=== PATIENT | female | born 1995 | race African-American/Black ===

== ENCOUNTER 2017-03-15 14:42 | Inpatient (IN) ==
[~2017-03-15 14:42] MED LIST: OXYTOCIN/LR 20 UNIT/1,000 ML BAG IV SCH
[2017-03-15] MEDS ORDERED: MEPERIDINE 50 MG/1 ML VIAL IV PRN (15:09)
[2017-03-15] MEDS: LACTATED RINGERS 1,000 ML IV SCH ×2 (15:09→23:42)
[2017-03-15] MEDS ORDERED: ONDANSETRON 4 MG/2 ML VIAL IV PRN (15:09)
[2017-03-15] MEDS ORDERED: LACTATED RINGERS 500 ML IV PRN (15:09)
[2017-03-15] MEDS ORDERED: DINOPROSTONE VAG GEL 10 MG SYRINGE VAG ONE (15:10)
[2017-03-15 15:26] LABS: Basophils % 0.3 % (0.0-0.8); Eosinophils # 0.1 10*3/uL (0.0-0.87); Eosinophils % 0.8 % (0.00-10.9); Hematocrit 33.2 VOL% (35.7-47.0); Hemoglobin 10.1 GM/DL (12.0-16.0); Immature Granulocytes % 0.4 %; Immature Granulocytes Absolute 0.03 #; Lymphocytes # 2.3 10*3/uL (1.4-4.0); Lymphocytes % 28.9 % (21.3-54.2); Mean Corpuscular HGB Conc 30.4 GM/DL (32-36); Mean Corpuscular Hemoglobin 24 PG (27-34); Mean Platelet Volume 13.1 FL (9.6-12.0); Monocytes # 0.8 10*3/uL (0.11-0.8); Monocytes % 9.5 % (1.7-12.7); NRBC # 0.02 10*3/uL; Neutrophils # 4.8 10*3/uL (1.4-7.4); Neutrophils % 60.1 % (38.7-73.9); Platelet Count 211 T/CUMM (130-400); Red Cell Distribution Width 15.1 % (9.3-17.3)
[2017-03-15 15:54] LABS: Alanine Aminotransferase 17 U/L (13-56); Albumin 2.9 G/DL (3.4-5.0); Alkaline Phosphatase 230 U/L (45-117); Aspartate Amino Transferase 21 U/L (0-37); Bilirubin,Total < 0.39 MG/DL (0.2-1.0); Blood Urea Nitrogen 6 MG/DL (7-18); Calcium 8.1 MG/DL (8.5-10.1); Glucose 81 MG/DL (74-106); Osmolality,Calculated 271.7 MOS/KG (273-304); Potassium 3.8 MMOL/L (3.5-5.1); Sodium 138 MMOL/L (136-145); Total Protein 7.2 G/DL (6.4-8.3)
[2017-03-15 16:20] LABS: INR 0.9; PT Patient Result 9.2 SECS; Partial Thromboplastin Time 28.3 SECS (0-40)
[2017-03-15] MEDS ORDERED: LABETALOL 100 MG TABLET ONE (19:08)
[2017-03-15] MEDS: LABETALOL 100 MG TABLET PO SCH ×2 (19:10→21:11)
[2017-03-15] MEDS ORDERED: hydrOXYzine HCL 25 MG/1 ML VIAL IM PRN (22:21)
[2017-03-15] MEDS ORDERED: diphenhydrAMINE 50 MG/1 ML VIAL IV PRN (22:21)
[2017-03-15] MEDS ORDERED: ePHEDrine 50 MG/ML AMP IV PRN (22:21)
[2017-03-15] MEDS ORDERED: PROMETHAZINE 25 MG/1 ML VIAL IM ONE (22:30)
[2017-03-15] MEDS ORDERED: LACTATED RINGERS 1,000 ML IV ONE (22:30)
[2017-03-15] MEDS ORDERED: CITRIC ACID/SODIUM CITRATE 30 ML UDCUP PO ONE (22:30)
[2017-03-15] MEDS ORDERED: fentaNYL 2 MCG/ROPIV 0.2% EPID 150 ML EPIDURAL SCH (22:30)
[2017-03-15] MEDS ORDERED: FAMOTIDINE 20 MG/2 ML VIAL IV ONE (22:30)
[2017-03-16] MEDS ORDERED: miSOPROStol 200 MCG TABLET ONE (05:02)
[2017-03-16] MEDS ORDERED: oxyCODONE/ACETAMINOPHEN 5-325 MG TABLET PO PRN ×2 (11:25→11:30)
[2017-03-16] MEDS ORDERED: MEASLES/MUMPS/RUBELLA VACCINE 0.5 ML VIAL SUBCUT ONE (11:25)
[2017-03-16] MEDS ORDERED: LANOLIN 50% CREAM 0.3 OZ TUBE TOP PRN (11:25)
[2017-03-16] MEDS ORDERED: DIPH/TET/ACEL PERT BOOSTER VACCINE 0.5 ML VIAL IM ONE (11:25)
[2017-03-16] MEDS ORDERED: RHO(D) IMMUNE GLOBULIN 300 MCG SYRINGE IM ONE (11:25)
[2017-03-16] MEDS ORDERED: WITCH HAZEL PADS 100/JAR TOP PRN (11:30)
[2017-03-16] MEDS ORDERED: ACETAMINOPHEN/CODEINE 300-30 MG TABLET PO PRN (11:30)
[2017-03-16] MEDS ORDERED: IBUPROFEN 800 MG TABLET PO PRN (11:30)
[2017-03-16] MEDS ORDERED: HYDROCORTISONE 2.5% RECTAL CREAM 30 GM TUBE TOP PRN (11:30)
[2017-03-16] MEDS ORDERED: BENZOCAINE 20%/MENTHOL 0.5% SPRAY 56 GM CAN TOP PRN (11:30)
[2017-03-16] MEDS ORDERED: BISACODYL 10 MG SUPP RECTAL PRN (11:30)
[2017-03-16] MEDS ORDERED: ACETAMINOPHEN 325 MG TABLET PO PRN (11:30)
[2017-03-16] MEDS ORDERED: OXYTOCIN/LR 20 UNIT/1,000 ML BAG IV ONE ×2 (11:44→11:45)
[2017-03-16] MEDS: DOCUSATE SODIUM 100 MG CAPSULE PO SCH (21:57)
[2017-03-17 06:34] LABS: Basophils % 0.2 % (0.0-0.8); Eosinophils # 0.2 10*3/uL (0.0-0.87); Eosinophils % 1.3 % (0.00-10.9); Hematocrit 32.1 VOL% (35.7-47.0); Hemoglobin 10.3 GM/DL (12.0-16.0); Immature Granulocytes % 0.7 %; Immature Granulocytes Absolute 0.08 #; Lymphocytes # 3.1 10*3/uL (1.4-4.0); Lymphocytes % 25.6 % (21.3-54.2); Mean Corpuscular HGB Conc 32.1 GM/DL (32-36); Mean Corpuscular Hemoglobin 25 PG (27-34); Mean Corpuscular Volume 76.2 FL (87-102); Mean Platelet Volume 12.9 FL (9.6-12.0); Monocytes # 0.8 10*3/uL (0.11-0.8); Monocytes % 6.8 % (1.7-12.7); Neutrophils # 7.9 10*3/uL (1.4-7.4); Neutrophils % 65.4 % (38.7-73.9); Platelet Count 205 T/CUMM (130-400); Red Blood Count 4.21 MC/CUMM (3.8-5.5); Red Cell Distribution Width 15.1 % (9.3-17.3)
[2017-03-17] MEDS: DOCUSATE SODIUM 100 MG CAPSULE PO SCH ×2 (09:35→22:20)
[2017-03-18] MEDS: DOCUSATE SODIUM 100 MG CAPSULE PO SCH (08:48)
[2017-03-18 11:44] VITALS: BP 123/79
== END 2017-03-18 14:20 | disposition home or self-care (01) | DRG 560 ==
LOC: N.LDOUT 14:42 → N.LD 14:44 → N.OB 03-16 11:25
PROVIDERS: ADMIT Obstetrics & Gynecology; ATTEND Obstetrics & Gynecology

== ENCOUNTER 2018-11-13 04:48 | Inpatient (IN) ==
[2018-11-13] MEDS ORDERED: BUTORPHANOL 2 MG/ML VIAL IV PRN (05:01)
[2018-11-13] MEDS ORDERED: MEPERIDINE 25 MG/1 ML VIAL IV PRN (05:01)
[2018-11-13] MEDS ORDERED: ONDANSETRON 4 MG/2 ML VIAL IV PRN (05:01)
[2018-11-13] MEDS ORDERED: OXYTOCIN/LR 20 UNIT/1,000 ML BAG IV SCH (05:30)
[2018-11-13] MEDS ORDERED: LACTATED RINGERS 1,000 ML IV SCH (05:30)
[2018-11-13 05:36] LABS: Basophils % 0.1 % (0.0-0.8); Eosinophils # 0.1 10*3/uL (0.0-0.87); Hematocrit 30.3 VOL% (35.7-47.0); Hemoglobin 9.3 GM/DL (12.0-16.0); Immature Granulocytes % 0.6 %; Immature Granulocytes Absolute 0.05 #; Lymphocytes # 2.8 10*3/uL (1.4-4.0); Lymphocytes % 32.1 % (21.3-54.2); Mean Corpuscular HGB Conc 30.7 GM/DL (32-36); Mean Corpuscular Volume 75.4 FL (87-102); Mean Platelet Volume 11.7 FL (9.6-12.0); Neutrophils % 58.2 % (38.7-73.9); Platelet Count 197 T/CUMM (130-400); Red Blood Count 4.02 MC/CUMM (3.8-5.5); Red Cell Distribution Width 15.1 % (9.3-17.3); White Blood Count 8.6 T/CUMM (4-12)
[2018-11-13 05:58] LABS: Albumin 2.6 G/DL (3.4-5.0); Bilirubin,Total 0.7 MG/DL (0.2-1.0); Calcium 8.6 MG/DL (8.5-10.1); Osmolality,Calculated 272.5 MOS/KG (273-304); Total Protein 7.1 G/DL (6.4-8.3)
[2018-11-13] MEDS ORDERED: ePHEDrine 50 MG/ML AMP IV PRN (07:28)
[2018-11-13] MEDS ORDERED: diphenhydrAMINE 50 MG/1 ML VIAL IV PRN ×2 (07:28)
[2018-11-13] MEDS ORDERED: NALOXONE 0.4 MG/ML VIAL IV PRN (07:28)
[2018-11-13] MEDS ORDERED: hydrOXYzine HCL 25 MG/1 ML VIAL IM PRN (07:28)
[2018-11-13] MEDS ORDERED: FAMOTIDINE 20 MG/2 ML VIAL IV ONE (07:28)
[2018-11-13] MEDS ORDERED: LACTATED RINGERS 1,000 ML IV ONE (07:28)
[2018-11-13] MEDS ORDERED: CITRIC ACID/SODIUM CITRATE 30 ML UDCUP PO ONE (07:28)
[2018-11-13] MEDS ORDERED: fentaNYL 2 MCG/ROPIV 0.2% EPID 100 ML EPIDURAL SCH (07:30)
[2018-11-13 09:36] LABS: Apearance,Urine CLEAR (Clear); Bilirubin,Urine Negative (Negative); Blood, Urine Negative (Negative); Glucose,Urine (UA) Negative (Negative); Ketones,Urine 20 mg/dL (Negative); Mucus,Urine Moderate /LPF (Occasional); Nitrite,Urine Negative (Negative); Protein,Urine Negative; RBC,Urine 1 /HPF (0-4); Squamous Epithelial Cell,Urine Occasional /HPF (0-10); Urine Color Yellow (Yellow); WBC,Urine 1 /HPF (0-6)
[2018-11-13] MEDS ORDERED: miSOPROStoL 200 MCG TABLET ONE (11:04)
[2018-11-13] MEDS ORDERED: METHYLERGONOVINE 0.2 MG/1 ML AMP ONE (11:05)
[2018-11-13 11:57] LABS: Cord Venous Blood HCO3 21.3 MMOL/L; Cord Venous Blood PCO2 37.7 MMHG; Cord Venous Blood PO2 31.1
[2018-11-13] MEDS ORDERED: DIPH/TET/ACEL PERT BOOSTER VACCINE 0.5 ML VIAL IM ONE (16:35)
[2018-11-13] MEDS ORDERED: HYDROCORTISONE 2.5% RECTAL CREAM 30 GM TUBE TOP PRN (16:35)
[2018-11-13] MEDS ORDERED: oxyCODONE/ACETAMINOPHEN 5-325 MG TABLET PO PRN (16:35)
[2018-11-13] MEDS ORDERED: ACETAMINOPHEN 325 MG TABLET PO PRN (16:35)
[2018-11-13] MEDS ORDERED: MEASLES/MUMPS/RUBELLA VACCINE 0.5 ML VIAL SUBCUT ONE (16:35)
[2018-11-13] MEDS ORDERED: BENZOCAINE 20%/MENTHOL 0.5% SPRAY 56 GM CAN TOP PRN (16:35)
[2018-11-13] MEDS ORDERED: WITCH HAZEL PADS 100/JAR TOP PRN (16:35)
[2018-11-13] MEDS ORDERED: LANOLIN 50% CREAM 0.3 OZ TUBE TOP PRN (16:35)
[2018-11-13] MEDS ORDERED: RHO(D) IMMUNE GLOBULIN 300 MCG SYRINGE IM ONE (16:35)
[2018-11-13] MEDS ORDERED: BISACODYL 10 MG SUPP RECTAL PRN (16:35)
[2018-11-13] MEDS: IBUPROFEN 800 MG TABLET PO PRN (18:23)
[2018-11-13] MEDS: DOCUSATE SODIUM 100 MG CAPSULE PO SCH (21:20)
[2018-11-14 05:34] LABS: Basophils % 0.2 % (0.0-0.8); Eosinophils # 0.1 10*3/uL (0.0-0.87); Eosinophils % 1.1 % (0.00-10.9); Hematocrit 25.7 VOL% (35.7-47.0); Hemoglobin 7.8 GM/DL (12.0-16.0); Immature Granulocytes % 0.8 %; Lymphocytes # 3.6 10*3/uL (1.4-4.0); Lymphocytes % 29.9 % (21.3-54.2); Mean Corpuscular HGB Conc 30.4 GM/DL (32-36); Mean Corpuscular Volume 75.1 FL (87-102); Mean Platelet Volume 12.2 FL (9.6-12.0); Monocytes % 7.5 % (1.7-12.7); Neutrophils % 60.5 % (38.7-73.9); Platelet Count 162 T/CUMM (130-400); Red Blood Count 3.42 MC/CUMM (3.8-5.5); Red Cell Distribution Width 15.4 % (9.3-17.3); White Blood Count 12.1 T/CUMM (4-12)
[2018-11-14] MEDS: DOCUSATE SODIUM 100 MG CAPSULE PO SCH ×2 (08:51→20:24)
[2018-11-14] MEDS: FERROUS SULFATE 325 MG TABLET PO SCH ×3 (08:51→20:24)
[2018-11-14] MEDS ORDERED: FERROUS SULFATE 325 MG TABLET PO SCH (09:00)
[2018-11-14] MEDS: IBUPROFEN 800 MG TABLET PO PRN (09:10)
[2018-11-14] MEDS: oxyCODONE/ACETAMINOPHEN 5-325 MG TABLET PO PRN ×2 (09:14→19:33)
[2018-11-15 07:32] VITALS: BP 127/71
[2018-11-15] MEDS: DOCUSATE SODIUM 100 MG CAPSULE PO SCH (09:15)
[2018-11-15] MEDS: FERROUS SULFATE 325 MG TABLET PO SCH (09:15)
== END 2018-11-15 13:20 | disposition home or self-care (01) | DRG 560 ==
LOC: N.LDOUT 04:48 → N.LD 04:50 → N.OB 16:19
PROVIDERS: ADMIT Obstetrics & Gynecology; ATTEND Obstetrics & Gynecology

== ENCOUNTER 2022-04-06 02:47 | Inpatient (IN) ==
[2022-04-06] MEDS ORDERED: OXYTOCIN/LR 20 UNIT/1,000 ML BAG IV ONE ×2 (02:55→13:49)
[2022-04-06] MEDS ORDERED: CARBOPROST TROMETHAMINE 250 MCG/ML AMP IM PRN (02:55)
[2022-04-06] MEDS ORDERED: BUTORPHANOL 2 MG/ML VIAL IV PRN (02:55)
[2022-04-06] MEDS ORDERED: miSOPROStoL 200 MCG TABLET RECTAL PRN (02:55)
[2022-04-06] MEDS ORDERED: LACTATED RINGERS 1,000 ML IV ONE (02:55)
[2022-04-06] MEDS ORDERED: MEPERIDINE 50 MG/1 ML VIAL IM PRN (02:55)
[2022-04-06] MEDS ORDERED: TRANEXAMIC ACID 1,000 MG in SODIUM CHLORIDE 0.9% 100 ML IV PRN (02:55)
[2022-04-06] MEDS ORDERED: METHYLERGONOVINE 0.2 MG/1 ML AMP IM PRN (02:55)
[2022-04-06] MEDS ORDERED: ONDANSETRON 4 MG/2 ML VIAL IV PRN (02:55)
[2022-04-06] MEDS ORDERED: OXYTOCIN/LR 20 UNIT/1,000 ML BAG IV SCH (03:00)
[2022-04-06] MEDS: LACTATED RINGERS 1,000 ML IV SCH ×2 (03:20→07:57)
[2022-04-06 03:28] LABS: Basophils % 0.2 % (0.0-0.8); Eosinophils # 0.1 10*3/uL (0.0-0.87); Eosinophils % 0.8 % (0.00-10.9); Hematocrit 28.9 VOL% (35.7-47.0); Hemoglobin 8.8 GM/DL (12.0-16.0); Immature Granulocytes % 0.5 %; Immature Granulocytes Absolute 0.05 #; Lymphocytes % 30.1 % (21.3-54.2); Mean Corpuscular HGB Conc 30.4 GM/DL (32-36); Mean Platelet Volume 11.3 FL (9.6-12.0); Monocytes # 0.7 10*3/uL (0.11-0.8); Monocytes % 6.9 % (1.7-12.7); Neutrophils % 61.5 % (38.7-73.9); Platelet Count 219 T/CUMM (130-400); Red Blood Count 3.96 MC/CUMM (3.8-5.5); Red Cell Distribution Width 15.7 % (9.3-17.3); White Blood Count 9.79 T/CUMM (4-12)
[2022-04-06 03:56] LABS: Alanine Aminotransferase 14 U/L (13-56); Albumin 2.6 G/DL (3.4-5.0); Alkaline Phosphatase 191 U/L (45-117); Aspartate Amino Transferase 17 U/L (0-37); Bilirubin,Total < 0.39 MG/DL (0.20-1.00); Blood Urea Nitrogen 4 MG/DL (7-18); Calcium 8.3 MG/DL (8.5-10.1); Carbon Dioxide 23 MMOL/L (21-32); Chloride 108 MMOL/L (98-107); Glucose 97 MG/DL (74-106); Osmolality,Calculated 271.7 MOS/KG (273-304); Potassium 3.4 MMOL/L (3.5-5.1); Sodium 138 MMOL/L (136-145); Total Protein 7.2 G/DL (6.4-8.2)
[2022-04-06] MEDS ORDERED: diphenhydrAMINE 50 MG/1 ML VIAL IV PRN (03:57)
[2022-04-06] MEDS ORDERED: NALOXONE 0.4 MG/ML VIAL IV PRN (03:57)
[2022-04-06] MEDS ORDERED: ePHEDrine 50 MG/ML VIAL IV PRN (03:57)
[2022-04-06] MEDS ORDERED: FAMOTIDINE 20 MG/2 ML VIAL IV ONE (03:58)
[2022-04-06] MEDS ORDERED: CITRIC ACID/SODIUM CITRATE 30 ML UDCUP PO ONE (03:58)
[2022-04-06] MEDS ORDERED: OXYTOCIN/LR 30 UNIT/1,000 ML BAG IV ONE (03:59)
[2022-04-06] MEDS ORDERED: fentaNYL 2 MCG/ROPIV 0.2% EPID 100 ML EPIDURAL SCH (04:00)
[2022-04-06 06:20] LABS: Mucus,Urine Occasional /LPF (Occasional); RBC,Urine <1 /HPF (0-4); Squamous Epithelial Cell,Urine Occasional /HPF (0-10); Urine Appearance Clear (Clear); Urine Color Light Yellow (Yellow)
[2022-04-06 06:21] LABS: Bilirubin,Urine Negative (Negative); Blood, Urine Negative (Negative); Glucose,Urine (UA) Negative (Negative); Ketones,Urine Negative (Negative); Nitrite,Urine Negative (Negative); Protein,Urine Negative (Negative); Urine pH 8.5 (4.5-8.0)
[2022-04-06] MEDS ORDERED: TRANEXAMIC ACID 1,000 MG/10 ML VIAL ONE (10:53)
[2022-04-06] MEDS ORDERED: miSOPROStoL 200 MCG TABLET ONE (10:53)
[2022-04-06] MEDS ORDERED: SODIUM CHLORIDE 0.9% 100 ML IV ONE (10:53)
[2022-04-06] MEDS ORDERED: METHYLERGONOVINE 0.2 MG/1 ML AMP ONE (10:54)
[2022-04-06] MEDS ORDERED: CARBOPROST TROMETHAMINE 250 MCG/ML AMP IM ONE (10:54)
[2022-04-06 11:58] LABS: Cord Venous Blood HCO3 22.3 MMOL/L; Cord Venous Blood PCO2 35.1 MMHG; Cord Venous Blood PO2 45.7
[2022-04-06] MEDS ORDERED: ACETAMINOPHEN 325 MG TABLET PO PRN (13:49)
[2022-04-06] MEDS ORDERED: oxyCODONE/ACETAMINOPHEN 5-325 MG TABLET PO PRN (13:49)
[2022-04-06] MEDS ORDERED: HYDROCORTISONE 2.5% RECTAL CREAM 30 GM TUBE TOP PRN (13:49)
[2022-04-06] MEDS ORDERED: BISACODYL 10 MG SUPP RECTAL PRN (13:49)
[2022-04-06] MEDS ORDERED: WITCH HAZEL PADS 100/JAR TOP PRN (13:49)
[2022-04-06] MEDS ORDERED: RHO(D) IMMUNE GLOBULIN 300 MCG SYRINGE IM ONE (13:49)
[2022-04-06] MEDS ORDERED: DIPH/TET/ACEL PERT BOOSTER VACCINE 0.5 ML VIAL IM ONE (13:49)
[2022-04-06] MEDS ORDERED: MEASLES/MUMPS/RUBELLA VACCINE 0.5 ML VIAL SUBCUT ONE (13:49)
[2022-04-06] MEDS ORDERED: LANOLIN 50% CREAM 0.3 OZ TUBE TOP PRN (13:49)
[2022-04-06] MEDS ORDERED: BENZOCAINE 20%/MENTHOL 0.5% SPRAY 56 GM CAN TOP PRN (13:49)
[2022-04-06] MEDS: oxyCODONE/ACETAMINOPHEN 5-325 MG TABLET PO PRN (17:53)
[2022-04-06] MEDS: IBUPROFEN 800 MG TABLET PO PRN (17:54)
[2022-04-06] MEDS: DOCUSATE SODIUM 100 MG CAPSULE PO SCH (21:04)
[2022-04-07 05:14] LABS: Basophils % 0.2 % (0.0-0.8); Eosinophils # 0.1 10*3/uL (0.0-0.87); Eosinophils % 0.8 % (0.00-10.9); Hematocrit 23.7 VOL% (35.7-47.0); Hemoglobin 7.3 GM/DL (12.0-16.0); Immature Granulocytes % 0.4 %; Immature Granulocytes Absolute 0.05 #; Lymphocytes # 2.8 10*3/uL (1.4-4.0); Lymphocytes % 21.9 % (21.3-54.2); Mean Corpuscular HGB Conc 30.8 GM/DL (32-36); Mean Corpuscular Volume 73.6 FL (87-102); Mean Platelet Volume 11.7 FL (9.6-12.0); Monocytes # 0.7 10*3/uL (0.11-0.8); Monocytes % 5.4 % (1.7-12.7); Neutrophils % 71.3 % (38.7-73.9); Platelet Count 174 T/CUMM (130-400); Red Blood Count 3.22 MC/CUMM (3.8-5.5); Red Cell Distribution Width 15.5 % (9.3-17.3); White Blood Count 12.57 T/CUMM (4-12)
[2022-04-07] MEDS: FERROUS SULFATE 325 MG TABLET PO SCH (09:43)
[2022-04-07] MEDS: DOCUSATE SODIUM 100 MG CAPSULE PO SCH ×2 (09:43→23:05)
[2022-04-07] MEDS: oxyCODONE/ACETAMINOPHEN 5-325 MG TABLET PO PRN (09:46)
[2022-04-07] MEDS ORDERED: SODIUM CHLORIDE 0.9% 1,000 ML IV PRN (09:53)
[2022-04-07 23:02] LABS: Basophils % 0.3 % (0.0-0.8); Eosinophils # 0.1 10*3/uL (0.0-0.87); Eosinophils % 0.8 % (0.00-10.9); Hemoglobin 10.9 GM/DL (12.0-16.0); Immature Granulocytes % 0.5 %; Immature Granulocytes Absolute 0.06 #; Lymphocytes # 3.7 10*3/uL (1.4-4.0); Lymphocytes % 27.7 % (21.3-54.2); Mean Corpuscular HGB Conc 32.1 GM/DL (32-36); Mean Corpuscular Volume 77.1 FL (87-102); Monocytes # 0.8 10*3/uL (0.11-0.8); Monocytes % 5.7 % (1.7-12.7); Platelet Count 190 T/CUMM (130-400); Red Blood Count 4.41 MC/CUMM (3.8-5.5); Red Cell Distribution Width 17.5 % (9.3-17.3); White Blood Count 13.32 T/CUMM (4-12)
[2022-04-08] MEDS ORDERED: INFLUENZA VIRUS VACCINE 0.5 ML SYRINGE IM ONE (08:00)
[2022-04-08] MEDS: DOCUSATE SODIUM 100 MG CAPSULE PO SCH (08:08)
[2022-04-08] MEDS: FERROUS SULFATE 325 MG TABLET PO SCH (08:08)
[2022-04-08] MEDS: oxyCODONE/ACETAMINOPHEN 5-325 MG TABLET PO PRN (08:10)
[2022-04-08] MEDS: IBUPROFEN 800 MG TABLET PO PRN (08:10)
[2022-04-08 11:26] VITALS: BP 131/88
== END 2022-04-08 14:50 | disposition home or self-care (01) | DRG 560 ==
LOC: N.LD 02:47 → N.OB 14:06
PROVIDERS: ADMIT Obstetrics & Gynecology; ATTEND Obstetrics & Gynecology